=== PATIENT | female | born 1970 | race African-American/Black ===

== ENCOUNTER 2016-09-08 13:13 | Emergency (ER) | payer SELFPAY ==
[~2016-09-08] VITALS: Ht 154.9 cm; Wt 130.0 kg
[2016-09-08] MEDS ORDERED: TraMADol HCL 50 MG TABLET PO ONE (16:15)
[2016-09-08] MEDS ORDERED: IBUPROFEN 800 MG TABLET PO ONE (16:15)
[2016-09-08 17:24] VITALS: BP 132/88
== END 2016-09-08 17:27 | disposition home or self-care (01) ==
LOC: EMS 13:16
DX: H60.91 Unspecified otitis externa, right ear (principal)
CPT/HCPCS: 99283